=== PATIENT | female | born 1950 | race Caucasian/White ===

== ENCOUNTER → 2016-12-18 | Outpatient (CLI) | payer BC, OTHER | LOC: RAD 15:17 | DX: M54.5 Low back pain (principal); M47.816 Spondylosis without myelopathy or radiculopathy, lumbar region; M25.551 Pain in right hip ==

== ENCOUNTER → 2018-01-24 | Outpatient (CLI) | payer OTHER, BC | LOC: NUC 06:43 | DX: R26.89 Other abnormalities of gait and mobility (principal); M85.88 Other specified disorders of bone density and structure, other site; Z78.0 Asymptomatic menopausal state ==

== ENCOUNTER → 2019-03-02 | Outpatient (CLI) | payer OTHER, BC | LOC: CAT 10:36 | DX: J32.9 Chronic sinusitis, unspecified (principal); R51 Headache; R42 Dizziness and giddiness ==

== ENCOUNTER → 2019-10-24 | Outpatient (CLI) | payer OTHER | LOC: BC 09:20 | DX: Z12.31 Encounter for screening mammogram for malignant neoplasm of breast (principal) ==

== ENCOUNTER → 2021-03-14 | Outpatient (CLI) | payer OTHER | LOC: BC 12:46 | PROVIDERS: ATTEND Internal Medicine | DX: Z12.31 Encounter for screening mammogram for malignant neoplasm of breast (principal); N64.89 Other specified disorders of breast ==